=== PATIENT | male | born 1995 | race Hispanic/Latino ===

== ENCOUNTER 2018-07-03 13:00 | Emergency (ER) | payer SELFPAY ==
[2018-07-03] MEDS ORDERED: HYDROcodone/Acetaminophen 5/325 mg Tablet ONE (13:50)
[2018-07-07 01:52] LABS: Chlamydia by PCR Not Detected (NotDetected); GC by PCR Not Detected (NotDetected)
== END 2018-07-03 14:42 | disposition home or self-care (01) ==
LOC: ERS 13:00
DX: T74.21XA Adult sexual abuse, confirmed, initial encounter (principal); A60.1 Herpesviral infection of perianal skin and rectum; Y07.9 Unspecified perpetrator of maltreatment and neglect
CPT/HCPCS: 87255; 87491; 87591; 99284

== ENCOUNTER 2020-01-11 16:49 | Emergency (ER) | payer OTHER ==
[2020-01-12 17:28] LABS: SARS-CoV-2 MS2 Positive; SARS-CoV-2 N Gene Negative; SARS-CoV-2 S Gene Negative; SARS-CoV-2 orf1ab Negative
== END 2020-01-11 18:01 | disposition home or self-care (01) ==
LOC: ERS 16:49
DX: R11.0 Nausea (principal); Z20.828 Contact with and (suspected) exposure to other viral communicable diseases
CPT/HCPCS: 87635; 99283; U0003